=== PATIENT | male | born 1955 | race Caucasian/White ===

== ENCOUNTER 2024-01-25 09:04 | Emergency (ER) | payer MEDICARE ==
[~2024-01-25] VITALS: Ht 175.3 cm; Wt 79.5 kg
[2024-01-25] MEDS ORDERED: NITROGLYCERIN 2% (1 GM=INCH) OINTMENT PACKET TP ONE (09:15)
[2024-01-25 09:21] VITALS: TEMP 99
[2024-01-25] MEDS: IBUPROFEN 600 MG TABLET PO ONE (09:38)
[2024-01-25] MEDS: PERTUSS(ACELL),DIPH,TET/PF 0.5 ML SYRINGE [ADULT] IM. ONE (09:39)
[2024-01-25] MEDS: OxyCODONE HCL/ACETAMINOPHEN 5-325 MG TABLET PO ONE (11:39)
[2024-01-25] MEDS ORDERED: IBUP-1492 PO (11:56)
[2024-01-25 12:54] VITALS: BP 152/90; PULSE 55; RESP 18
== END 2024-01-25 15:05 | disposition home or self-care (01) ==
LOC: EMS 09:05
DX: S20.212A Contusion of left front wall of thorax, initial encounter (principal); S80.212A Abrasion, left knee, initial encounter; S80.211A Abrasion, right knee, initial encounter; W19.XXXA Unspecified fall, initial encounter; Y93.01 Activity, walking, marching and hiking; Y92.89 Other specified places as the place of occurrence of the external cause; Y99.8 Other external cause status
CPT/HCPCS: 71101; 90471; 90715; 99283

== ENCOUNTER → 2024-10-22 | Emergency (ER) | payer MEDICARE ==
[~2024-10-22] VITALS: Ht 190.5 cm; Wt 68.2 kg
[~2024-10-22] MED LIST: AMOX-457 PO; ASPI-1444 PO; DIAZ2 PO; GUAIFDM PO
[2024-10-22 19:27] VITALS: TEMP 97.8
[2024-10-22] MEDS: KETOROLAC TROMETHAMINE 30 MG/ML VIAL IM ONE (20:27)
[2024-10-22] MEDS: DIAZEPAM 5 MG TABLET PO ONE (20:27)
[2024-10-22 21:37] VITALS: BP 109/73; PULSE 88; RESP 19; O2SAT 97
== END | disposition home or self-care (01) ==
LOC: EMS 19:19
DX: M25.552 Pain in left hip (principal); M79.652 Pain in left thigh; F12.90 Cannabis use, unspecified, uncomplicated; Z79.82 Long term (current) use of aspirin; W19.XXXA Unspecified fall, initial encounter; Y93.K1 Activity, walking an animal; Y92.89 Other specified places as the place of occurrence of the external cause; Y99.8 Other external cause status
CPT/HCPCS: 99283; 73503; 96372; J1885

== ENCOUNTER 2024-11-02 21:16 | Emergency (ER) | payer MEDICARE ==
[~2024-11-02] VITALS: Ht 182.9 cm; Wt 54.5 kg
[~2024-11-02 21:16] MED LIST changes: -AMOX-457 PO; -DIAZ2 PO; -GUAIFDM PO
[2024-11-02 21:32] VITALS: TEMP 98.3
[2024-11-02 22:05] VITALS: BP 118/69; PULSE 83; RESP 20; O2SAT 100
[2024-11-02 22:07] LABS: BASOPHILS % (AUTO) 0.9 % (0.0-2.0); EOSINOPHILS % (AUTO) 2.3 % (1.0-6.0); HEMATOCRIT 37.7 % (41-53); HEMOGLOBIN 12.2 g/dL (13.5-17.5); LYMPHOCYTES # (AUTO) 1.6 K/uL (1.0-4.8); LYMPHOCYTES % (AUTO) 15.4 % (22.0-44.0); MEAN CORPUSCULAR HEMOGLOBIN 29.7 pg (26.0-34.0); MEAN CORPUSCULAR HGB CONC 32.3 G/dL (31.0-37.0); MEAN CORPUSCULAR VOLUME 92 fL (80-100); MONOCYTES % (AUTO) 9.3 % (2.0-9.0); NEUTROPHILS # (AUTO) 7.6 K/uL (1.8-7.7); NEUTROPHILS % (AUTO) 72.1 % (40.0-70.0); PLATELET COUNT (AUTO) 360 K/uL (150-450); RED CELL DISTRIBUTION WIDTH 19.1 % (11.5-14.5); WHITE BLOOD COUNT (AUTO) 10.6 K/uL (4.5-11.0)
[2024-11-02 22:16] LABS: ANION GAP 3 mmol/L (8-16); CALCIUM, TOTAL 8.8 mg/dL (8.8-10.5); CARBON DIOXIDE 34 mmol/L (22-29); CHLORIDE 103 mmol/L (98-107); CREATININE 0.99 mg/dL (0.60-1.30); GLOMERULAR FILTR. RATE CALC > 60 mL/min (>60); GLUCOSE,RANDOM 154 mg/dL (70-110); POTASSIUM 5.6 mmol/L (3.5-5.1); SODIUM SERUM 140 mmol/L (136-145); UREA NITROGEN, BLOOD 24 mg/dL (7-18)
[2024-11-03] MEDS ORDERED: DOXY-354 PO (00:53)
[2024-11-03] MEDS ORDERED: IBUP-1506 PO (00:53)
[2024-11-03] MEDS: IBUPROFEN 400 MG TABLET PO ONE (01:14)
[2024-11-03] MEDS: ACETAMINOPHEN 325 MG TABLET PO ONE (01:14)
[2024-11-03] MEDS: DOXYCYCLINE HYCLATE 100 MG TABLET PO ONE (01:14)
== END 2024-11-03 01:26 | disposition home or self-care (01) ==
LOC: EMS 21:16
DX: L02.413 Cutaneous abscess of right upper limb (principal); E87.5 Hyperkalemia; F12.90 Cannabis use, unspecified, uncomplicated; Z79.82 Long term (current) use of aspirin
CPT/HCPCS: 80048; 85025; 99284